=== PATIENT | female | born 1980 | race Two or more races ===

== ENCOUNTER 2024-05-10 18:18 | Emergency (ER) | payer OTHER ==
[~2024-05-10] VITALS: Ht 154.9 cm; Wt 59.0 kg
--- NOTE | 2024-05-10 18:20 | NUR ---
PT PRESENTS FOR NEEDLE STICK BLOOD TO BE DRAWN PER PROTOCOL. FOR PEEP GUIDELINES CALLED [phone] HOWEVER PHONE NUMBER RINGS FAST BUSY AT THIS TIME 3 ATTEMPTS LALI WITHOUT SUCCESS BLOOD TO BE DRAWN PER [facility] [place] GUIDELINES NEEDLE STICK TO LEFT INDEX FINGER
[2024-05-10 18:26] VITALS: BP 113/74; PULSE 78; RESP 15; TEMP 98.1; O2SAT 100
--- NOTE | 2024-05-10 18:34 | NUR ---
UNABLE TO DEPART PT AT THIS TIME DUE TO REGISTRATION
--- NOTE | 2024-05-10 18:34 | ERN ---
General Chief Complaint: Needle Stick Stated Complaint: NEEDLE STICK Time Seen by MD: 18:19 History of Present Illness Initial Comments 43-year-old female otherwise healthy presents for needlestick. Patient reports needle stick to the left index finger today. Wounds cleaned with soap and water. No other injuries. Allergies: Coded Allergies: No Known Drug Allergies (Unverified Allergy, Unknown, 05/10/24) Past Medical History Past Medical History: No Pertinent History Past Surgical History: Other Surgical History Other: carpal tunnel ROS Dictation CONSTITUTIONAL: No chills, no fever, no weakness, no diaphoresis, no malaise. HEAD/FACE: No signs of trauma. EENT: No eye pain, no blurred vision, no tearing, no double vision, no ear pain, no ear discharge, no nose pain, no nasal congestion, no throat pain, no throat swelling, no mouth pain. RESPIRATORY: No cough, no orthopnea, no SOB, no stridor, no wheezing. CARDIOVASCULAR: No chest pain, no edema, no palpitations, no syncope. GASTROINTESTINAL/ABDOMINAL: No abdominal pain, no constipation, no diarrhea, no nausea, no vomiting. GENITOURINARY: No abnormal discharge, no dysuria, no frequent urination, no hematuria. No complaints of pain in the genitals. MUSCULOSKELETAL: No back pain, no gout, no joint pain, no joint swelling, no muscle pain, no muscle stiffness, no neck pain. INTEGUMENTARY: No change in color, no change in hair/nails, no dryness, no lesion, no lumps, no rash. NEUROLOGICAL/PSYCH: No anxiety, not depressed, no emotional problem, no headache, no numbness, no pre-existing deficit, no history of seizures, no tremors, no weakness. HEMATOLOGIC/LYMPHATIC: Not anemic, no history of blood clots, no apparent bleeding, no bruising, glands not swollen. All Systems Negative, Except as Noted. Physical Exam Physical Exam Dictation VITAL SIGNS: Reviewed. GENERAL APPEARANCE: Alert, oriented x3, no acute distress HEAD AND FACE: Non-traumatic. NEUROLOGICAL: Normal speech, gross motor function intact, gross sensory function intact. MUSCULOSKELETAL: Neck nontender, full range of motion, back nontender, full range of motion. EXTREMITIES: Nontender, full range of motion. SKIN: Color pink, dry, no turgor, no rash, no lacerations, no abrasions, no contusions. Results Laboratory and Microbiology Lab and Micro Result Laboratory Tests Test 05/10/24 17:48 Hepatitis B Surface Antibody. Negative (Reactive) L Hepatitis B Core Total Antibody. Non-Reactive (Nonreactive) Hepatitis C Antibody Non-Reactive (Nonreactive) HIV (1&2) Antibody Non-Reactive (Negative) HIV P24 Antigen, Qualitative Non-Reactive (Negative) MDM Patient had a needle stick No comorbidities Vitals stable Already cleaned Labs ordered This to follow up with health ED Course Orders Procedure Category Date Status Time Hiv 1-2 W/Reflex To LAB 05/10/24 Complete Confirm 17:48 Hepatitis B Core Total LAB 05/10/24 Complete 17:48 Hepatitis B Surface LAB 05/10/24 Complete Antibody 17:48 Hepatitis C Ab LAB 05/10/24 Complete W/Reflex To Pcr 17:48 Vital Signs Date Time Temp Pulse Resp B/P (MAP) Pulse Ox O2 Delivery O2 Flow Rate FiO2 05/10/24 18:26 98.1 78 15 113/74 100 Room Air* 0 21 05/10/24 18:19 98.1 78 15 113/74 100 Room Air DX & DISP Disposition: Discharge Departure Impression: Primary Impression: Needlestick injury accident Condition: Stable Additional Instructions: Follow up with employee health as needed. Referrals: SELF,REFERRAL (PCP) DERECK VILLANUEVA DO May 10, 2024 18:34
[2024-05-10 19:32] LABS: HIV 1&2 ANTIBODY Non-Reactive (Negative)
[2024-05-10 19:33] LABS: HIV-1 p24 Antigen Non-Reactive (Negative)
[2024-05-11 04:07] LABS: HEPATITIS C ANTIBODY Non-Reactive (Nonreactive)
[2024-05-11 13:42] LABS: HEPATITIS B CORE AB TOTAL Non-Reactive (Nonreactive); HEPATITIS B SURFACE ANTIBODY Negative (Reactive)
== END 2024-05-10 18:50 | disposition home or self-care (01) ==
LOC: EDH 18:18
DX: S61.231A Puncture wound without foreign body of left index finger without damage to nail, initial encounter (principal); Z77.21 Contact with and (suspected) exposure to potentially hazardous body fluids; Z98.890 Other specified postprocedural states; W46.0XXA Contact with hypodermic needle, initial encounter; Y93.89 Activity, other specified; Y92.89 Other specified places as the place of occurrence of the external cause; Y99.0 Civilian activity done for income or pay
CPT/HCPCS: 36415; 86701; 86704; 86706; 86803; 87390; 99283